=== PATIENT | male | born 1975 | race Caucasian/White ===

== ENCOUNTER → 2020-04-05 14:46 | Outpatient (BNVA) | payer MEDICAID, SELFPAY | PROVIDERS: Visit Provider Urology | DX: E29.1 Testicular hypofunction (principal); F52.4 Premature ejaculation; N52.01 Erectile dysfunction due to arterial insufficiency | CPT/HCPCS: 99214 ==

== ENCOUNTER 2020-08-03 13:02 | Outpatient (REF) | payer MEDICAID, SELFPAY | END 2020-08-03 13:03 | disposition home or self-care (01) | LOC: HO.LAB 13:02 | PROVIDERS: Visit Provider Internal Medicine | DX: Z20.822 Contact with and (suspected) exposure to COVID-19 (principal) | CPT/HCPCS: 36415; C9803; U0003; U0005 ==

== ENCOUNTER → 2020-10-04 08:41 | Outpatient (BNVA) | payer MEDICAID, SELFPAY | PROVIDERS: PCP Internal Medicine; Visit Provider Urology | DX: N52.01 Erectile dysfunction due to arterial insufficiency (principal); E29.1 Testicular hypofunction | CPT/HCPCS: 99212 ==

== ENCOUNTER 2021-03-20 14:13 | Outpatient (REF) | payer MEDICAID, SELFPAY ==
[2021-03-20 16:00] LABS: Hematocrit 51.9 % (42-52); Hemoglobin 16.9 g/dl (14.0-18.0); Mean Corpuscular HGB Conc 32.6 g/dl (31.0-36.0); Mean Corpuscular Hemoglobin 28.1 pg (27.0-33.0); Mean Corpuscular Volume 86.4 fL (80-98); Mean Platelet Volume 10.8 fL (9.4-12.4); Platelet Count 277 X10*3/uL (160-400); Red Blood Count 6.01 X10*6/uL (4.60-5.80); Red Cell Distribution Width 12.6 % (11.0-16.0); White Blood Count 8.9 X10*3/uL (4.8-10.8)
[2021-03-20 16:46] LABS: Prostate Specific Antigen 0.97 ng/mL (<0.05-4.0)
[2021-03-25 08:12] LABS: Testosterone, Total 927 ng/dL (250-1100)
== END 2021-03-20 14:14 | disposition home or self-care (01) ==
LOC: HO.LAB 14:13
PROVIDERS: Visit Provider Urology
DX: Z12.5 Encounter for screening for malignant neoplasm of prostate (principal); E29.1 Testicular hypofunction; N13.8 Other obstructive and reflux uropathy; N40.1 Benign prostatic hyperplasia with lower urinary tract symptoms
CPT/HCPCS: 36415; 84153; 84403; 85027

== ENCOUNTER → 2021-04-05 11:22 | Outpatient (BNVA) | payer MEDICAID, SELFPAY | PROVIDERS: Visit Provider Urology ==

== ENCOUNTER → 2021-09-06 11:08 | Outpatient (BNVA) | payer MEDICAID, SELFPAY | PROVIDERS: PCP General Practice; Referring Provider General Practice; Visit Provider Nurse Practitioner Family | DX: K64.8 Other hemorrhoids (principal); K62.5 Hemorrhage of anus and rectum; K59.01 Slow transit constipation | CPT/HCPCS: 99202 ==

== ENCOUNTER → 2021-09-14 09:32 | Outpatient (BNVA) | payer MEDICAID, SELFPAY | PROVIDERS: PCP General Practice; Referring Provider General Practice; Visit Provider Surgery | DX: K64.8 Other hemorrhoids (principal) | CPT/HCPCS: 46600; 99202 ==

== ENCOUNTER 2021-09-14 16:41 | Emergency (ER) | payer MEDICAID, SELFPAY ==
--- NOTE | ~2021-09-14 | CT_ITS ---
EXAMINATION: CT ABDOMEN AND PELVIS WITHOUT CONTRAST CLINICAL INFORMATION: Flank pain bilateral COMPARISON: None TECHNIQUE: Multidetector volumetric imaging was performed from the superior aspect of the liver through the pubic symphysis. Sagittal and coronal reformatted images were obtained on the technologist's workstation. This CT examination was performed using dose optimization techniques as appropriate, variously including the following: *Automated exposure control *Adjustment of mA and/or kV according to patient size (this includes techniques or standardized protocols for targeted exams where dose is matched to indication/reason for exam; i.e. extremities or head) *Use of iterative reconstruction technique DLP: 930 mGy-cm FINDINGS: LUNG BASES: The visualized lung bases are unremarkable. LIVER, GALLBLADDER, AND BILIARY TREE: The liver is normal in size, shape, and attenuation. No focal hepatic lesion or biliary ductal dilatation is present. The gallbladder is unremarkable with no evidence of radiopaque gallstones, gallbladder wall thickening, or obvious pericholecystic inflammatory changes. PANCREAS: Unremarkable. SPLEEN: Unremarkable. ADRENAL GLANDS: Unremarkable. KIDNEYS AND URETERS: The kidneys are normal in size, shape, and attenuation. No hydronephrosis, hydroureter, or calculi seen. No perinephric stranding. BLADDER: Unremarkable. GASTROINTESTINAL TRACT: The small and large bowel are unremarkable. A normal appendix is not seen but no suspicion around the cecum ABDOMINAL WALL: No significant hernia is appreciated. LYMPH NODES: Normal. VASCULAR: Unremarkable. PELVIC VISCERA: Unremarkable. OSSEOUS STRUCTURES: Unremarkable. CT/CT abdomen pelvis wo con IMPRESSION: No acute finding. The bowel pattern is nonobstructing. There is no free fluid. No evidence of ureteral stone or obstruction. Fleischner guidelines were followed.
[2021-09-14 16:52] VITALS: BP 151/100; PULSE 84; RESP 18; TEMP 37.1; O2SAT 96; BMI 44.1
[2021-09-14 19:00] LABS: MANUAL DIFF FLAG NO
[2021-09-14 19:01] LABS: Basophils Percent Auto 0.3 % (0-2); Eosinophils Absolute Auto 0.1 X10*3/uL (0.0-0.4); Eosinophils Percent Auto 1.6 % (0-4); Hematocrit 50.6 % (42.0-52.0); Hemoglobin 16.8 g/dl (14.0-18.0); Imm Gran Abs Auto 0.05 X10*3/uL (0.00-0.03); Imm Gran Pct Auto 0.6 % (0.0-0.4); Lymphocytes Absolute Auto 1.9 X10*3/uL (1.2-4.9); Lymphocytes Percent Auto 21.8 % (20-40); Mean Corpuscular HGB Conc 33.2 g/dl (31.0-36.0); Mean Corpuscular Hemoglobin 27.8 pg (27.0-33.0); Mean Corpuscular Volume 83.6 fL (80.0-98.0); Monocytes Absolute Auto 0.7 X10*3/uL (0.1-1.2); Monocytes Percent Auto 8.6 % (2-11); Neutrophils Absolute Auto 5.8 x10*3/uL (2.0-8.3); Neutrophils Percent Auto 67.1 % (45-73); Platelet Count 240 X10*3/uL (160-400); Red Blood Count 6.05 X10*6/uL (4.60-5.80); Red Cell Distribution Width 12.7 % (11.0-16.0); White Blood Count 8.6 X10*3/uL (4.8-10.8)
[2021-09-14 19:20] LABS: Anion Gap 12 (12-20); Blood Urea Nitrogen 13 mg/dL (9-16); Calcium 10.1 mg/dL (8.4-10.2); Carbon Dioxide 27 mmol/L (22-29); Chloride 104 mmol/L (96-108); Creatinine Clr Calc Pharmacy 96.1; Estimated Glomerular Filt Rate > 60; Glucose Random 101 mg/dL (60-115); Potassium 4.4 mmol/L (3.3-5.1); Sodium 139 mmol/L (135-145)
--- NOTE | 2021-09-14 20:35 | ED_ITS ---
HPI - General Adult General Chief complaint: General Medical <Chelsea Velez NP - Last Filed: 09/15/21 01:09> Stated complaint: Back pain/Headache <Chelsea Velez NP - Last Filed: 09/15/21 01:09> Time Seen by Provider: 09/14/21 20:51 <Chelsea Velez NP - Last Filed: 09/15/21 01:09> Source: patient <Chelsea Velez NP - Last Filed: 09/15/21 01:09> Mode of arrival: ambulatory <Chelsea Velez NP - Last Filed: 09/15/21 01:09> Limitations: no limitations <Chelsea Velez NP - Last Filed: 09/15/21 01:09> History of Present Illness HPI narrative: 45-year-old male presents with multiple complaints. Reports several days of bilateral lower back pain radiating down to his groin and his leg. Also reports headache, changes in vision and left ear pain with hearing loss. <Chelsea Velez NP - Last Filed: 09/15/21 01:09> Onset (ago): week(s) <Chelsea Velez NP - Last Filed: 09/15/21 01:09> Location: head and back <Chelsea Velez NP - Last Filed: 09/15/21 01:09> Radiation: non-radiation <Chelsea Velez NP - Last Filed: 09/15/21 01:09> Severity: moderate <Chelsea Velez NP - Last Filed: 09/15/21 01:09> Quality: aching <Chelsea Velez NP - Last Filed: 09/15/21 01:09> Pain Consistency: intermittent <Chelsea Velez NP - Last Filed: 09/15/21 01:09> Relieving factors: rest <Chelsea Velez NP - Last Filed: 09/15/21 01:09> Exacerbating factors: movement <Chelsea Velez NP - Last Filed: 09/15/21 01:09> Associated symptoms: headaches <Chelsea Velez NP - Last Filed: 09/15/21 01:09> Treatments prior to arrival: none <Chelsea Velez NP - Last Filed: 09/15/21 01:09> Related Data Home medications: Home Medications Medication Instructions Recorded Confirmed cyclobenzaprine 5 mg tablet 5 mg PO BEDTIME 04/05/20 09/14/21 naproxen 250 mg tablet 250 mg PO BID PRN 04/05/20 09/14/21 Previous Rx's Medication Instructions Recorded tadalafil 5 mg tablet 5 mg PO DAILY 90 Days #90 tab 10/04/20 syringe with needle 1 mL 25 gauge #50 ea 04/20/21 x 5/8 testosterone cypionate 200 mg/mL 80 mg (0.4 mL) SUBCUT QWEEK 28 05/24/21 intramuscular oil Days #2 ml (Depo-Testosterone) docusate sodium 100 mg capsule 100 mg PO BEDTIME #30 cap 09/06/21 hydrocortisone 2.5 % topical cream 1 appl NV BID-QID PRN #30 g 09/06/21 with perineal applicator (Proctosol HC) sennosides 8.6 mg tablet (Natural 8.6 mg PO BEDTIME #30 tab 09/06/21 Senna Laxative) <BRUNO Macias Last Filed: 09/15/21 01:09> Allergies/adverse reactions: Allergies Allergy/AdvReac Type Severity Reaction Status Date / Time No Known Allergies Allergy Verified 09/14/21 10:51 [No Known Allergies*] <BRUNO Macias Last Filed: 09/15/21 01:09> Review of Systems Review of Systems: Constitutional: No Fever, No Chills ENT/Mouth: Positive left Ear Pain, No Hoarseness, No sore throat Eyes: No Eye Pain, No Swelling, No Redness, No Foreign Body Cardiovascular: No Chest Pain, No SOB Respiratory: No Cough, No Dyspnea Gastrointestinal: No Nausea, No Vomiting, No Diarrhea, No abdominal Pain, positive flank pain Genitourinary: No Dysuria, No Hematuria Musculoskeletal: No joint pain, No Myalgias, No Joint Swelling Skin: No Skin lacerations, No rash Neuro: No Weakness, No Numbness, No Paresthesias, No Loss of Consciousness, No Dizziness, positive Headache Psych: No Anxiety/Panic, No Depression Heme/Lymph: no easy bruising, no Lymphadenopathy Endocrine: No Polyuria, No Polydipsia <BRUNO Macias Last Filed: 09/15/21 01:09> Yes all other systems are reviewed and are negative <Chelsea Velez NP - Last Filed: 09/15/21 01:09> [facility] Past Medical History Attestation statement: The following information was validated with the patient. <Chelsea Velez NP - Last Filed: 09/15/21 01:09> Source: old records reviewed <Chelsea Velez NP - Last Filed: 09/15/21 01:09> Medical History: Medical History Hemorrhoids with complication Hypogonadism in male Low libido Morbid obesity Premature ejaculation <Chelsea Velez NP - Last Filed: 09/15/21 01:09> Surgical History: Surgical History History of vasectomy <Chelsea Velez NP - Last Filed: 09/15/21 01:09> Social History Social History: Social History Alcohol intake: never Patient Tobacco Use Status: Never used Tobacco Use of substances other than those prescribed or required for medical reasons: No Advance Directives: No <Chelsea Velez NP - Last Filed: 09/15/21 01:09> Physical Exam ED Vital Signs: Vital Signs - 24 hr 09/14/21 16:52 09/14/21 20:51 Temperature 98.8 F 98.8 F Pulse Rate 84 84 Respiratory Rate 18 14 Blood Pressure 151/100 H 145/96 H Pulse Oximetry 96 98 BMI result Body Mass Index 44.1 <Chelsea Velez NP - Last Filed: 09/15/21 01:09> Appearance: Alert. Oriented X3. No acute distress. Head: Normal external exam. Normocephalic. Atraumatic. No Adkins signs noted. No raccoon eyes noted Eyes: PERRLA. EOMI. Conjunctiva and sclera normal. Eyelids normal. ENT: TM's Normal. Pharynx normal. Uvula midline. Moist mucous membranes. No trismus noted. No drooling noted. No muffled voice noted. Neck: Normal inspection. Neck supple. No adenopathy. No meningeal signs. No neck mass noted. CVS: Normal heart rate and rhythm. Heart sound normal. No murmurs noted. Pulses equal to all extremities. Respiratory: No respiratory distress. Painless inspiration. Breath sounds normal. No wheezes/rales/rhonchi noted. Chest nontender. No accessory muscle usage noted or decreased air movement noted. Abdomen: Soft and nontender. Bowel sounds normal in all 4 quadrants. No dist ention noted. Right-sided CVA tenderness noted. Back: Full range of motion noted. Skin: Skin warm and dry. Normal skin color. Normal skin turgor. No rashes/lesions/lacerations noted. Extremities: No lower extremity edema. Extremities exhibit normal range of motion. Extremities nontender. Neuro: cranial nerves 2-12 intact, no focal neural deficits, strength 5/5 to all extremities, No motor deficit. No sensory deficit. <BRUNO Macias Last Filed: 09/15/21 01:09> Course Course Course Narrative: 45-year-old male presents with headache, left ear pain and decreased hearing, lower back pain and sciatica for approximately 2 months. He was worked up by his primary care physician who treated him for sinus infection. He does have ch ronic lower back pain however states the pain is radiated up into his flank. Will order labs, CT scan of abdomen pelvis. HEENT exam is negative. Labs negative for acute findings. CT scan of abdomen pelvis is negative. Pain is most likely muscular skeletal. Will refer patient to ENT for his reported hearing loss. pipe coverer utilized for all correspondence. Google translate utilized for discharge instructions. Patient verbalized understanding of and agrees to plan of care to discharge home. Verbalized understanding of signs and symptoms indicating need for emergent intervention <BRUNO Macias Last Filed: 09/15/21 01:09> Medical Decision Making Differential Diagnosis Differential Diagnosis: Chronic back pain, nephrolithiasis, pyelo, UTI, otitis media, sinusitis <BRUNO Macias Last Filed: 09/15/21 01:09> Medical Records Medical records reviewed: Yes I reviewed the patient's medical records. <BRUNO Macias Last F iled: 09/15/21 01:09> Lab Data Lab results reviewed: Yes I reviewed the patient's lab results. <Chelsea Velez NP - Last Filed: 09/15/21 01:09> Result diagrams: : 09/14/21 18:56 09/14/21 18:56 <Chelsea Velez NP - Last Filed: 09/15/21 01:09> Labs: Lab Results 09/14/21 09/14/21 09/14/21 Range/Units 18:56 18:56 21:16 WBC 8.6 (4.8-10.8) X10*3/uL RBC 6.05 H (4.60-5.80) X10*6/uL Hgb 16.8 (14.0-18.0) g/dl Hct 50.6 (42.0-52.0) % MCV 83.6 (80.0-98.0) fL MCH 27.8 (27.0-33.0) pg MCHC 33.2 (31.0-36.0) g/dl RDW 12.7 (11.0-16.0) % Plt Count 240 (160-400) X10*3/uL MPV 10.0 (9.4-12.4) fL Immature Gran % (Auto) 0.6 H (0.0-0.4) % Neut % (Auto) 67.1 (45-73) % Lymph % (Auto) 21.8 (20-40) % Bucks % (Auto) 8.6 (2-11) % Eos % (Auto) 1.6 (0-4) % Baso % (Auto) 0.3 (0-2) % Lymph # (Auto) 1.9 (1.2-4.9) X10*3/uL Bucks # (Auto) 0.7 (0.1-1.2) X10*3/uL Eos # (Auto) 0.1 (0.0-0.4) X10*3/uL Baso # (Auto) 0.0 (0.0-0.2) X10*3/uL Abs Immat Gran (auto) 0.05 H (0.00-0.03) X10*3/uL Absolute Neuts (auto) 5.8 (2.0-8.3) x10*3/uL Absolute Nucleated RBC 0.000 (0.0-0.012) X10*3/uL Nucleated RBC % (auto) 0.0 (0.0-0.2) /100WBC Sodium 139 (135-145) mmol/L Potassium 4.4 (3.3-5.1) mmol/L Chloride 104 (96-108) mmol/L Carbon Dioxide 27 (22-29) mmol/L Anion Gap 12 (12-20) BUN 13 (9-16) mg/dL Creatinine 1.26 (0.5-1.4) mg/dL Estim Creat Clear Calc 96.1 Estimated GFR > 60 Random Glucose 101 (60-115) mg/dL Calcium 10.1 (8.4-10.2) mg/dL Troponin I High Sens 7.0 (<3.5-35.0) ng/L Urine Color Urine Appearance Urine pH (5.0-8.0) Ur Specific Hollenberg (1.005-1.025) Urine Protein (NEG-TRACE) MG/DL Urine Glucose (UA) (NEG) MG/DL Urine Ketones (NEG) MG/DL Urine Blood (NEG) Urine Nitrite (NEG) Ur Leukocyte Esterase (NEG) Influenza Type A (PCR) (Negative) Influenza Type B (PCR) (Negative) RSV RNA Qual (PCR) (Negative) SARS-CoV-2 RNA (RT-PCR) (Negative) 09/14/21 09/14/21 Range/Units 21:16 21:16 WBC (4.8-10.8) X10*3/uL RBC (4.60-5.80) X10*6/uL Hgb (14.0-18.0) g/dl Hct (42.0-52.0) % MCV (80.0-98.0) fL MCH (27.0-33.0) pg MCHC (31.0-36.0) g/dl RDW (11.0-16.0) % Plt Count (160-400) X10*3/uL MPV (9.4-12.4) fL Immature Gran % (Auto) (0.0-0.4) % Neut % (Auto) (45-73) % Lymph % (Auto) (20-40) % Bucks % (Auto) (2-11) % Eos % (Auto) (0-4) % Baso % (Auto) (0-2) % Lymph # (Auto) (1.2-4.9) X10*3/uL Bucks # (Auto) (0.1-1.2) X10*3/uL Eos # (Auto) (0.0-0.4) X10*3/uL Baso # (Auto) (0.0-0.2) X10*3/uL Abs Immat Gran (auto) (0.00-0.03) X10*3/uL Absolute Neuts (auto) (2.0-8.3) x10*3/uL Absolute Nucleated RBC (0.0-0.012) X10*3/uL Nucleated RBC % (auto) (0.0-0.2) /100WBC Sodium (135-145) mmol/L Potassium (3.3-5.1) mmol/L Chloride (96-108) mmol/L Carbon Dioxide (22-29) mmol/L Anion Gap (12-20) BUN (9-16) mg/dL Creatinine (0.5-1.4) mg/dL Estim Creat Clear Calc Estimated GFR Random Glucose (60-115) mg/dL Calcium (8.4-10.2) mg/dL Troponin I High Sens (<3.5-35.0) ng/L Urine Color YELLOW Urine Appearance CLEAR Urine pH 5.5 (5.0-8.0) Ur Specific Hollenberg 1.020 (1.005-1.025) Urine Protein NEG (NEG-TRACE) MG/DL Urine Glucose (UA) NEG (NEG) MG/DL Urine Ketones NEG (NEG) MG/DL Urine Blood NEG (NEG) Urine Nitrite NEG (NEG) Ur Leukocyte Esterase NEG (NEG) Influenza Type A (PCR) NEGATIVE (Negative) Influenza Type B (PCR) NEGATIVE (Negative) RSV RNA Qual (PCR) NEGATIVE (Negative) SARS-CoV-2 RNA (RT-PCR) NEGATIVE (Negative) <Chelsea Velez NP - Last Filed: 09/15/21 01:09> Imaging Data CT abdomen pelvis: Attestation: I personally reviewed and interpreted this imaging study as follows: <Chelsea Velez NP - Last Filed: 09/15/21 01:09> Radiologist's impression: FINDINGS: LUNG BASES: The visualized lung bases are unremarkable.? LIVER, GALLBLADDER, AND BILIARY TREE: The liver is normal in size, shape, and attenuation. No focal hepatic lesion or biliary ductal dilatation is present. The gallbladder is unremarkable with no evidence of radiopaque gallstones, gallbladder wall thickening, or obvious pericholecystic inflammatory changes.? PANCREAS: Unremarkable.? SPLEEN: Unremarkable.? ADRENAL GLANDS: Unremarkable.? KIDNEYS AND URETERS: The kidneys are normal in size, shape, and attenuation. No hydronephrosis, hydroureter, or calculi seen. No perinephric stranding. ? BLADDER: Unremarkable.? GASTROINTESTINAL TRACT: The small and large bowel are unremarkable. A normal appendix is not seen but no suspicion around the cecum? ABDOMINAL WALL: No significant hernia is appreciated.? LYMPH NODES: Normal. VASCULAR: Unremarkable. PELVIC VISCERA: Unremarkable.? OSSEOUS STRUCTURES: Unremarkable.? CT/CT abdomen pelvis wo con IMPRESSION: No acute finding. The bowel pattern is nonobstructing. There is no free fluid. No evidence of ureteral stone or obstruction.? ? Fleischner guidelines were followed. <Chelsea Velez NP - Last Filed: 09/15/21 01:09> Discharge Plan Discharge Clinical Impression: Hearing loss, Abdominal pain, Chronic lower back pain <Chelsea Velez NP - Last Filed: 09/15/21 01:09> Patient Disposition: Home, Self-Care <Chelsea Velez NP - Last Filed: 09/15/21 01:09> Additional Instructions: Se le evalu? por p?rdida de audici?n y dolor de o?do cr?zain timi el ?ltimo mes. Por favor, ellie un seguimiento con magallanes m?dico de atenci?n primaria. Te remit? a ENT. Por favor llame y solicite becka pradip. Se le evalu? por dolor en la parte baja de la espalda y en el flanco. La tomograf?a computarizada del abdomen y la pelvis es negativa para hallazgos agudos que requieren becka intervenci?n urgente. Lo remit? al Dr. Carvajal para el manejo del dolor por dolor lumbar cr?zain. Por favor llame y solicite becka pradip. Salome por elegir zandra departamento de emergencias para magallanes evaluaci?n. Por favor, ellie un seguimiento con el m?dico de atenci?n primaria seg?n sea necesario. Regrese al departamento de emergencias por cualquier s?ntoma nuevo, preocupante o que empeore. You were evaluated for hearing loss and ear pain which has been chronic over the past month. Please follow-up with your primary care physician. I referred you to ENT. Please call and request an appointment. You were evaluated for lower back and flank pain. CT scan of abdomen pelvis is negative for acute findings requiring emergent intervention. I referred you to Dr. Carvajal for pain management for chronic lower back pain. Please call and request an appointment. Thank you for choosing this emergency department for evaluation. Please follow-up with primary care physician as needed. Return to the emergency department for any new, concerning, or worsening symptoms. <Chelsea Velez NP - Last Filed: 09/15/21 01:09> Prescriptions: No Action (DME) syringe with needle 1 mL 25 gauge x 5/8 syringe See Rx Instructions .ROUTE .MEDSUPPLY Qty: 50 1RF Rx Instructions: As directed testosterone cypionate [Depo-Testosterone] 200 mg/mL oil 80 mg subcut QWEEK 28 Days Qty: 2 5RF naproxen 250 mg tablet 250 mg PO BID PRN0RF cyclobenzaprine 5 mg tablet 5 mg PO BEDTIME 0RF tadalafil 5 mg tablet 5 mg PO DAILY 90 Days Qty: 90 1RF docusate sodium 100 mg capsule 100 mg PO BEDTIME Qty: 30 3RF sennosides [Natural Senna Laxative] 8.6 mg tablet 8.6 mg PO BEDTIME Qty: 30 3RF hydrocortisone [Proctosol HC] 2.5 % cream with perineal applicator 1 appl NV BID-QID PRN (Reason: hemorrhoids) Qty: 30 2RF <Chelsea Velez NP - Last Filed: 09/15/21 01:09> Referrals: Steve Carvajal MD [Physician] - 2 days (Chronic back pain) Tapan Clinton [Physician] - 2 days (Left ear hearing loss) <Chelsea Velez NP - Last Filed: 09/15/21 01:09> Interventions: ED Discharge Assessment Last Done: 09/14/21 23:54 <Chelsea Velez NP - Last Filed: 09/15/21 01:09> Discharge Date/Time: 09/14/21 23:55 <Chelsea Velez NP - Last Filed: 09/15/21 01:09>
[2021-09-14 20:51] VITALS: BP 145/96; PULSE 84; RESP 14; TEMP 37.1; O2SAT 98
--- NOTE | 2021-09-14 20:51 | ECG_ITS ---
Test Reason : back pain Blood Pressure : / mmHG Vent. Rate : 085 BPM Atrial Rate : 085 BPM P-R Int : 122 ms QRS Dur : 086 ms QT Int : 356 ms P-R-T Axes : 032 -14 027 degrees QTc Int : 423 ms Normal sinus rhythm Minimal voltage criteria for LVH, may be normal variant ( R in aVL ) Borderline ECG No previous ECGs available Referred By: Chelsea Velez Electronically Signed By:JIGNA HIGGINS MD
[2021-09-14 21:25] LABS: Appearance Urine CLEAR; Color Urine YELLOW; Glucose Urine UA NEG (NEG); Leukocyte Esterase Urine NEG (NEG); Nitrite Urine NEG (NEG); PH 5.5 (5.0-8.0); Urine Blood NEG (NEG); Urine Ketones NEG (NEG); Urine Protein NEG (NEG-TRACE)
[2021-09-14 22:01] LABS: Influenza A PCR NEGATIVE (Negative); Influenza B PCR NEGATIVE (Negative); Resp Syncy Virus RNA Qual PCR NEGATIVE (Negative); SARS COV2 PCR INHOUSE NEGATIVE (Negative)
== END 2021-09-14 23:55 | disposition home or self-care (01) ==
PROVIDERS: Nurse Practitioner Family; Emergency Provider Emergency Medicine; PCP General Practice
DX: G89.29 Other chronic pain (principal); M54.50 Low back pain, unspecified; R10.9 Unspecified abdominal pain; H92.02 Otalgia, left ear; H91.92 Unspecified hearing loss, left ear; Z20.822 Contact with and (suspected) exposure to COVID-19
CPT/HCPCS: 0241U; 36415; 74176; 80048; 81003; 84484; 85025; 93005; 99284

== ENCOUNTER 2021-09-20 12:36 | Outpatient (REF) | payer MEDICAID, SELFPAY ==
[2021-09-20 13:26] LABS: Hematocrit 49.2 % (42.0-52.0); Hemoglobin 16.4 g/dl (14.0-18.0); Mean Corpuscular HGB Conc 33.3 g/dl (31.0-36.0); Mean Corpuscular Hemoglobin 27.7 pg (27.0-33.0); Mean Corpuscular Volume 83.1 fL (80.0-98.0); Mean Platelet Volume 10.5 fL (9.4-12.4); Platelet Count 246 X10*3/uL (160-400); Red Blood Count 5.92 X10*6/uL (4.60-5.80); White Blood Count 7.6 X10*3/uL (4.8-10.8)
[2021-09-20 14:06] LABS: Prostate Specific Antigen 0.72 ng/mL (<0.05-4.0)
[2021-09-26 08:56] LABS: Testosterone, Total 182 ng/dL (250-1100)
== END 2021-09-20 12:37 | disposition home or self-care (01) ==
LOC: HO.LAB 12:36
PROVIDERS: PCP General Practice; Visit Provider Urology
DX: Z12.5 Encounter for screening for malignant neoplasm of prostate (principal); E29.1 Testicular hypofunction
CPT/HCPCS: 36415; 84153; 84403; 85027

== ENCOUNTER 2021-09-27 12:34 | Outpatient (REF) | payer MEDICAID, SELFPAY ==
--- NOTE | 2021-09-27 14:25 | MHC.AU.ANO ---
Adult Audiological Evaluation Date of Visit: 09/27/21 County Manager Used: [place]- In Person Reason for Appointment: Patient reports that for about one month, he has been having significant difficulty hearing out of his left ear. If he plugs up his right ear, his left can hear that someone is talking, but he can't make out what they are saying and they sound far away. Has hearing been tested previously?: No Ear History: Ear Deformity: None Reported Recent Ear Drainage: None Reported Recent Ear Pain: None Reported Family History of Hearing Loss?: No Recent Ear Infections: None Reported Ear Infections in Childhood: None Reported History of Ear Wax Buildup: None Reported Previous Ear Surgery: None Reported Bothersome Tinnitus/Ringing/Noises in Ears: None Reported Ear used on the phone: None Reported Blocked/Full Sensation in Ear(s): Left Ear History of occupational noise exposure?: No History: No Medical History: Medical History: Seasonal allergies Medication List: Flexeril, Relafen, Claritin, Testosterone, Vitamin D3 Otoscopy: Right Ear: Tympanic membrane is retracted Left Ear: Fluid behind tympanic membrane Tympanometry: Tympanometry performed due to: To assess integrity of the middle ear system Right Ear: Negative Middle Ear Pressure (Type C) Left Ear: Non-compliant Middle Ear System (Type B) Hearing Evaluation: Transducer(s) Used: Insert Earphones Method: Conventional Audiometry Stimuli Used: Pure Tones Right Ear: Description of Hearing: Mild to moderately-severe mixed hearing loss Left Ear: Description of Hearing: Moderate to profound mixed hearing loss (mostly conductive) Speech Recognition Threshold (SRT): Method Used: Recorded Lists Stimuli Used: [place] Trisyllable Words Right Ear: 35 dBHL Left Ear: 55 dBHL Word Discrimination: Method: Recorded Lists Word Lists Used: Lista Bisil?bica ([place]) Right Ear: 100% at 70 dBHL Left Ear: 100% at 85 dBHL Interpretation of Results: Patient presents with middle ear dysfunction and mixed hearing loss bilaterally, significantly worse in the left ear. Recommendations: Referral to Ear, Nose, and Throat is highly recommended to address middle ear dysfunction and mixed hearing loss Diagnosis: Primary Diagnosis: H90.A32 Mixed HL, Unilateral, Left Ear, W/Restricted Contralateral Signature: Provider: Mariano Anguiano, [facility]
== END 2021-09-27 12:35 | disposition home or self-care (01) ==
LOC: HO.SH 12:34
PROVIDERS: Visit Provider General Practice
DX: H90.A32 Mixed conductive and sensorineural hearing loss, unilateral, left ear with restricted hearing on the contralateral side (principal)
CPT/HCPCS: 92557; 92567

== ENCOUNTER → 2021-10-04 10:33 | Outpatient (BNVA) | payer MEDICAID, SELFPAY | PROVIDERS: PCP General Practice; Visit Provider Urology | DX: E29.1 Testicular hypofunction (principal); N52.01 Erectile dysfunction due to arterial insufficiency; Z79.899 Other long term (current) drug therapy | CPT/HCPCS: 99212 ==

== ENCOUNTER → 2021-11-03 12:34 | Outpatient (BNVA) | payer MEDICAID, SELFPAY | PROVIDERS: PCP General Practice; Referring Provider General Practice; Visit Provider Nurse Practitioner Family | DX: K64.9 Unspecified hemorrhoids (principal); K59.01 Slow transit constipation | CPT/HCPCS: 99212 ==

== ENCOUNTER 2022-01-06 10:23 | Emergency (ER) | payer MEDICAID, SELFPAY ==
--- NOTE | ~2022-01-06 | XR_ITS ---
EXAMINATION: XR CHEST CLINICAL INFORMATION: Right-sided pain COMPARISON: None TECHNIQUE: 2 views of the chest were obtained. FINDINGS: The cardiac and mediastinal contours are normal. The lungs are clear. There is no pleural effusion or pneumothorax. There are degenerative changes of the spine. XR/XR chest 2V IMPRESSION: No evidence of acute disease in the chest.
[2022-01-06 10:48] VITALS: BP 158/98; PULSE 78; RESP 16; TEMP 36.3; O2SAT 96; BMI 42.3
--- NOTE | 2022-01-06 12:53 | ED.BACK ---
HPI - Back Pain/Injury General Chief Complaint: Back Pain/Injury Stated Complaint: back pain Time Seen by Provider: 01/06/22 12:51 Source: patient Mode of arrival: ambulatory History of Present Illness HPI Narrative: 46-year-old male with a past medical history of obesity, presenting to the ED complaining right-sided back pain x3 weeks. Reports pain is constant, worse at night and 1st thing in the morning. Reports pain worse with movement. Denies known injury, trauma or fall, radiation down the lower extremities, numbness, tingling, weakness, SOB, CP, pain with inspiration, hematuria / dysuria MD elicited complaint: back pain Onset (ago): day(s) Related Data Home Medications Medication Instructions Recorded Confirmed naproxen 250 mg tablet 250 mg PO BID PRN 04/05/20 09/14/21 azelastine 137 mcg (0.1 %) nasal 1 spray intranasal BID 10/04/21 spray aerosol cholecalciferol (vitamin D3) 50 50 mcg PO DAILY 10/04/21 mcg (2,000 unit) tablet loratadine 10 mg tablet 10 mg PO DAILY 10/04/21 nabumetone 750 mg tablet 750 mg PO BID low back pain 10/04/21 polyvinyl alcohol 1.4 % eye drops 1 drp ophthalmic (eye) TID-QID 10/04/21 (Artificial Tears (polyvinyl alcohol)) cyclobenzaprine 10 mg tablet 10 mg PO TID PRN low back pain 11/03/21 Previous Rx's Medication Instructions Recorded hydrocortisone 2.5 % topical cream 1 appl TN BID-QID PRN hemorrhoids 09/06/21 with perineal applicator #30 grams (Proctosol HC) testosterone cypionate 200 mg/mL 100 mg (0.5 mL) subcut QWEEK 4 10/04/21 intramuscular oil weeks #2 mL (Depo-Testosterone) docusate sodium 100 mg capsule 100 mg PO BEDTIME #90 caps 11/03/21 sennosides 8.6 mg tablet (Natural 8.6 mg PO BEDTIME constipation #90 11/03/21 Senna Laxative) tabs acetaminophen 500 mg tablet 500 mg PO Q6H PRN fever or pain 01/06/22 (Tylenol Extra Strength) #14 tabs cyclobenzaprine 5 mg tablet 5 mg PO Q8H PRN pain (scale score 01/06/22 7-10) 5 days #14 tabs ketorolac 10 mg tablet 10 mg PO TID PRN pain 5 days #15 01/06/22 tabs lidocaine 5 % topical patch 1 patch topical DAILY PRN pain #30 01/06/22 (Lidoderm) ea Allergies Allergy/AdvReac Type Severity Reaction Status Date / Time No Known Allergies Allergy Verified 01/06/22 10:48 [No Known Allergies*] Review of Systems Review of Systems: Constitutional: No Fever, No Chills, No Fatigue, No Malaise ENT/Mouth: No Ear Pain, No Nasal Congestion, No sore throat, No Rhinorrhea, No Swallowing Difficulty Eyes: No Eye Pain, No Swelling, No Redness Cardiovascular: No Chest Pain, No SOB, No Palpitations Respiratory: No Cough, No Sputum, No Dyspnea Gastrointestinal: No Nausea, No Vomiting, No Diarrhea, No Constipation, No Abdominal pain Genitourinary: No Dysuria, No Urinary Frequency, No Hematuria, No Urinary Incontinence/retention, No Urgency, No Flank Pain Musculoskeletal: + joint pain, No Myalgias, No Joint Swelling Skin: No Skin Lesions, No rash Neuro: No Weakness, No Numbness, No Paresthesias, No Headache Yes all other systems are reviewed and are negative Neurologic: Denies Sensory deficit (Neuro) [facility] Past Medical History Attestation statement: The following information was validated with the patient. Medical History Hemorrhoids with complication Hypogonadism in male Low libido Morbid obesity Premature ejaculation Surgical History History of vasectomy Social History Social History Alcohol intake: never Patient Tobacco Use Status: Never used Tobacco Advance Directives: Yes Advance Directives Information Provided: Yes Advance Directives on File: No Physical Exam Vital Signs: Vital Signs: Last Vital Signs Temp 97.3 F 01/06/22 10:48 Pulse 78 01/06/22 10:48 Resp 16 01/06/22 10:48 BP 158/98 H 01/06/22 10:48 Pulse Ox 96 01/06/22 10:48 O2 Del Method 01/06/22 10:48 BMI result Body Mass Index 42.3 Const: General: cooperative, healthy appearing and no acute distress Orientation/consciousness: patient oriented x3 Limitations: no limitations HEENT: Head: Yes normal to inspection and Yes atraumatic Ears: hearing grossly normal bilaterally General nose exam: Normal external nose present Face and sinus: Yes normal facial exam Eyes: General: appearance normal, both eyes and all related structures EOM: EOMs intact bilaterally Neck: Neck: Yes normal visual inspection and Yes no meningeal signs Chest: Chest palpation & inspection: normal inspection of the chest and no crepitus Resp: Effort & Inspection: normal respiratory effort and no respiratory distress Auscultation: clear to auscultation bilaterally Cardio: Rate: regular rate Heart sounds: S1 normal heart sound present and S2 normal heart sound present GI: Inspection: Yes normal to inspection Palpation (GI): Soft to palpation, nontender, no guarding and not rigid : General: Yes no CVA tenderness Back/Spine/Pelvis: Other: No midline thoracic/lumbar spinous tenderness/step-off or deformity. + right-sided midthoracic paraspinal tenderness to palpation/right scapular tenderness. No rash Back: no CVA tenderness Skin: Rashes: no rashes Wounds: no wounds Neuro: Other: Strength intact throughout. No saddle anesthesia. Sensation intact to light touch. Neurovascular intact distally General: patient oriented x3, gait normal, tone normal, moves all extremities, no meningeal signs and no focal motor deficits Gait exam (Neuro): Normal gait present Motor exam (neuro): 5/5 motor strength present throughout Sensory Exam: No Sensory deficit (Neuro) Extrem: General: Yes normal to inspection Course Course Course Narrative: XR chest 2V IMPRESSION: No evidence of acute disease in the chest. -UA negative > results discussed with patient with science interpreter including worrisome signs and symptoms and strict return precautions and recommended follow-up with PCP MDM - Back Pain/Injury MDM Narrative Medical decision making narrative: 46-year-old male with a past medical history of obesity, presenting to the ED complaining right-sided back pain x3 weeks. Reports pain is constant, worse at night and 1st thing in the morning. On exam vital signs stable, NAD, nontoxic appearing, physical exam as above, no midline spinous tenderness throughout, no red flag symptoms, physical exam as above. Concern for MSK pain/strain vs underlying pneumonia or ?Mass vs renal stone. Symptoms atypical for ACS/PE Plan: CXR, UA Differential Diagnosis Differential diagnosis: Likely renal colic and thoracic back pain Medical Records Attestation: I reviewed the patient's medical records. Lab Data Attestation: I reviewed the patient's lab results. Labs: Lab Results 01/06/22 Range/Units 15:09 Urine Color YELLOW Urine Appearance CLEAR Urine pH 5.5 (5.0-8.0) Ur Specific [place] 1.015 (1.005-1.025) Urine Protein NEG (NEG-TRACE) MG/DL Urine Glucose (UA) NEG (NEG) MG/DL Urine Ketones NEG (NEG) MG/DL Urine Blood NEG (NEG) Urine Nitrite NEG (NEG) Ur Leukocyte Esterase NEG (NEG) Discharge Plan Discharge Clinical Impression: Thoracic back pain Patient Disposition: Home, Self-Care Instructions: Thoracic Pain (ED) Additional Instructions: Your pain is likely musculoskeletal Flexeril is a muscle relaxer, take at night as it makes you drowsy, do not drive, drink alcohol, or operate machinery while taking it Toradol is an anti-inflammatory / pain medication, take with food Lidoderm patches are numbing patches, apply to painful area In addition take Tylenol at home If symptoms persist or worsen, pain becomes unbearable, you developed urinary retention or incontinence, or weakness return to the ED Es probable que magallanes dolor sea musculoesquel?kenneth Flexeril es un relajante muscular, t?maine por la noche ya que te adormece, no conduzcas, bebas alcohol ni operes maquinaria mientras lo dominique. Toradol es un medicamento antiinflamatorio/analg?sico, se pascale con alimentos. Los parches de Lidoderm son parches anest?sicos, se aplican en el ?jeff dolorida Adem?s pascale Tylenol en casa Si los s?ntomas persisten o empeoran, el dolor se vuelve insoportable, desarroll? retenci?n urinaria o incontinencia, o debilidad, regrese al servicio de urgencias. Prescriptions: New acetaminophen [Tylenol Extra Strength] 500 mg tablet 500 mg PO Q6H PRN (Reason: fever or pain) Qty: 14 0RF ketorolac 10 mg tablet 10 mg PO TID PRN (Reason: pain) 5 Days Qty: 15 0RF lidocaine [Lidoderm] 5 % adhesive patch,medicated 1 patch topical DAILY MDD remove after 12 hours PRN (Reason: pain) Qty: 30 0RF Rx Instructions: leave on most painful area for up to 12 hrs cyclobenzaprine 5 mg tablet 5 mg PO Q8H PRN (Reason: pain (scale score 7-10)) 5 Days Qty: 14 0RF No Action testosterone cypionate [Depo-Testosterone] 200 mg/mL oil 100 mg subcut QWEEK 28 Days Qty: 2 5RF naproxen 250 mg tablet 250 mg PO BID PRN cholecalciferol (vitamin D3) 50 mcg (2,000 unit) tablet 50 mcg PO DAILY azelastine 137 mcg (0.1 %) aerosol,spray 1 spray intranasal BID polyvinyl alcohol [Artificial Tears (polyvin alc)] 1.4 % drops 1 drp ophthalmic (eye) TID-QID nabumetone 750 mg tablet 750 mg PO BID loratadine 10 mg tablet 10 mg PO DAILY cyclobenzaprine 10 mg tablet 10 mg PO TID PRN (Reason: low back pain) docusate sodium 100 mg capsule 100 mg PO BEDTIME Qty: 90 4RF sennosides [Natural Senna Laxative] 8.6 mg tablet 8.6 mg PO BEDTIME Qty: 90 4RF hydrocortisone [Proctosol HC] 2.5 % cream with perineal applicator 1 appl TN BID-QID PRN (Reason: hemorrhoids) Qty: 30 2RF Referrals: [facility] [Primary Care Provider] - Print Language: Bulgarian
[2022-01-06] MEDS: Ketorolac Tromethamine 30 MG/ML VIAL IM (15:02)
[2022-01-06] MEDS: Lidocaine 4 % Patch ADH..PATCH 1 PATCH TRANSDERMA (15:03)
[2022-01-06 15:21] LABS: Appearance Urine CLEAR; Color Urine YELLOW; Glucose Urine UA NEG (NEG); Leukocyte Esterase Urine NEG (NEG); Nitrite Urine NEG (NEG); PH 5.5 (5.0-8.0); Specific Gravity - Urine 1.015 (1.005-1.025); Urine Blood NEG (NEG); Urine Ketones NEG (NEG); Urine Protein NEG (NEG-TRACE)
== END 2022-01-06 15:51 | disposition home or self-care (01) ==
PROVIDERS: Physician Assistant; Emergency Provider Emergency Medicine
DX: M54.6 Pain in thoracic spine (principal); E66.01 Morbid (severe) obesity due to excess calories; Z68.41 Body mass index [BMI] 40.0-44.9, adult
CPT/HCPCS: 71046; 81003; 96372; 99283; 99284; J1885

== ENCOUNTER 2022-04-17 11:36 | Outpatient (REF) | payer MEDICAID, SELFPAY ==
[2022-04-17 12:47] LABS: Hematocrit 43.7 % (42.0-52.0)
[2022-04-21 11:52] LABS: Testosterone, Total 339 ng/dL (250-1100)
== END 2022-04-17 11:37 | disposition home or self-care (01) ==
LOC: HO.LAB 11:36
PROVIDERS: Visit Provider Urology
DX: Z12.5 Encounter for screening for malignant neoplasm of prostate (principal); E29.1 Testicular hypofunction
CPT/HCPCS: 36415; 84153; 84403; 85014

== ENCOUNTER 2022-10-17 09:40 | Outpatient (REF) | payer MEDICAID, SELFPAY ==
[2022-10-17 10:08] LABS: Hematocrit 50.1 % (42.0-52.0); Hemoglobin 16.4 g/dl (14.0-18.0); Mean Corpuscular HGB Conc 32.7 g/dl (31.0-36.0); Mean Corpuscular Hemoglobin 28.1 pg (27.0-33.0); Mean Corpuscular Volume 85.9 fL (80.0-98.0); Mean Platelet Volume 10.1 fL (9.4-12.4); Platelet Count 207 X10*3/uL (160-400); Red Blood Count 5.83 X10*6/uL (4.60-5.80); Red Cell Distribution Width 13.9 % (11.0-16.0); White Blood Count 7.5 X10*3/uL (4.8-10.8)
[2022-10-17 11:18] LABS: Prostate Specific Antigen 2.22 ng/mL (<0.05-4.0)
[2022-10-24 12:34] LABS: Testosterone, Total 885 ng/dL (250-1100)
== END 2022-10-17 09:41 | disposition home or self-care (01) ==
LOC: HO.LAB 09:40
PROVIDERS: PCP General Practice; Visit Provider Urology
DX: E29.1 Testicular hypofunction (principal)
CPT/HCPCS: 36415; 84153; 84403; 85027

== ENCOUNTER → 2022-11-02 15:51 | Outpatient (BNVA) | payer MEDICAID, SELFPAY | PROVIDERS: PCP General Practice; Visit Provider Nurse Practitioner Family | DX: Z12.11 Encounter for screening for malignant neoplasm of colon (principal); K64.9 Unspecified hemorrhoids; K59.01 Slow transit constipation | CPT/HCPCS: 99212 ==

== ENCOUNTER 2023-03-22 11:32 | Emergency (ER) | payer MEDICAID, SELFPAY ==
[2023-03-22 11:39] VITALS: BP 156/104; PULSE 91; RESP 19; TEMP 36.6; O2SAT 99; BMI 40.0
--- NOTE | 2023-03-22 11:39 | ED_ITS ---
HPI - General Adult General Chief complaint: Back Pain/Injury Stated complaint: back pain/ L hand pain Time Seen by Provider: 03/22/23 11:55 Source: patient Mode of arrival: ambulatory Limitations: no limitations History of Present Illness HPI narrative: This is a 47-year-old male history of obesity presenting to the emergency department with lower back pain times a few hours, patient reports this is a work related injury he was picking up a heavy box filled with me, and started experiencing bilateral lower lumbar back pain as well as right-sided elbow pain. He says his elbow feels sore. Back worse with movement better at rest. No numbness, tingling, weakness, fevers, chills, saddle paresthesias, changes in bowel habits or urination, chest pain, shortness of breath. Related Data Home Medications Medication Instructions Recorded Confirmed naproxen 250 mg tablet 250 mg PO BID PRN 04/05/20 09/14/21 azelastine 137 mcg (0.1 %) nasal 1 spray intranasal BID 10/04/21 spray aerosol cholecalciferol (vitamin D3) 50 50 mcg PO DAILY 10/04/21 mcg (2,000 unit) tablet loratadine 10 mg tablet 10 mg PO DAILY 10/04/21 nabumetone 750 mg tablet 750 mg PO BID low back pain 10/04/21 polyvinyl alcohol 1.4 % eye drops 1 drp ophthalmic (eye) TID-QID 10/04/21 (Artificial Tears (polyvinyl alcohol)) cyclobenzaprine 10 mg tablet 10 mg PO TID PRN low back pain 11/03/21 Previous Rx's Medication Instructions Recorded hydrocortisone 2.5 % topical cream 1 appl HI BID-QID PRN hemorrhoids 09/06/21 with perineal applicator #30 grams (Proctosol HC) sennosides 8.6 mg tablet (Natural 8.6 mg PO BEDTIME constipation #90 11/03/21 Senna Laxative) tabs acetaminophen 500 mg tablet 500 mg PO Q6H PRN fever or pain 01/06/22 (Tylenol Extra Strength) #14 tabs cyclobenzaprine 5 mg tablet 5 mg PO Q8H PRN pain (scale score 01/06/22 7-10) 5 days #14 tabs ketorolac 10 mg tablet 10 mg PO TID PRN pain 5 days #15 01/06/22 tabs lidocaine 5 % topical patch 1 patch topical DAILY PRN pain #30 01/06/22 (Lidoderm) ea syringe with needle 1 mL 25 gauge #50 ea 10/17/22 x 5/8 bisacodyl 5 mg tablet,delayed 10 mg (2 x 5 mg) PO ONCE 1 day #2 11/02/22 release (Dulcolax (bisacodyl)) tabs docusate sodium 100 mg capsule 100 mg PO BEDTIME #90 caps 11/02/22 polyethylene glycol 3350 17 238 g PO ONCE #238 grams 11/02/22 gram/dose oral powder (Miralax) testosterone cypionate 200 mg/mL 100 mg (0.5 mL) subcut QWEEK 4 11/06/22 intramuscular oil weeks #4 mL (Depo-Testosterone) cyclobenzaprine 10 mg tablet 10 mg PO BEDTIME PRN muscle spasm 03/22/23 #7 tabs ketorolac 10 mg tablet 10 mg PO TID PRN pain 5 days #15 03/22/23 tabs lidocaine 5 % topical patch 1 patch topical DAILY PRN pain #15 03/22/23 ea Allergies Allergy/AdvReac Type Severity Reaction Status Date / Time No Known Allergies Allergy Verified 03/22/23 11:39 [No Known Allergies*] Review of Systems Review of Systems: Constitutional : No Weight loss, No Fever, No Chills, ENT/Mouth : No Hearing loss, No Ear Pain, No Nasal Congestion, No Sinus Pain, No Hoarseness, No sore throat, No Rhinorrhea, No Swallowing Difficulty Cardiovascular : No Chest Pain, No SOB Respiratory : No Cough, No Dyspnea Gastrointestinal : No Nausea, No Vomiting, No Diarrhea, No abdominal Pain, No Hematochezia, No Melena Genitourinary : No Dysuria, No Urinary Frequency, No Hematuria, No Urinary Incontinence, Musculoskeletal : positive back pain Skin : No Skin Lesions, No rash Neuro : No Weakness, No Numbness, No Paresthesias, no loss of bowel or bladder incontinence, no saddle anesthesia Yes all other systems are reviewed and are negative [facility] Past Medical History Attestation statement: The following information was validated with the patient. Source: old records reviewed and nursing notes reviewed Medical History Hemorrhoids with complication Morbid obesity Premature ejaculation Hypogonadism in male Low libido Surgical History History of vasectomy Social History Social History Alcohol intake: never Patient Tobacco Use Status: Never used Tobacco Advance Directives: No Advance Directives Information Provided: No Physical Exam ED Vital Signs: Vital Signs - 24 hr 03/22/23 11:39 Temperature 98 F Pulse Rate 91 Respiratory Rate 19 Blood Pressure 156/104 H Pulse Oximetry 99 Oxygen Delivery Method Room Air BMI result Body Mass Index 40.0 vss Appearance: Alert.? Oriented X3.? No acute distress.? Head: Normocephalic, atraumatic, no step-offs or deformities Eyes: Pupils equal, round and reactive to light.? ENT: Pharynx normal.? Neck: Normal inspection.? Neck supple.? CVS: Normal heart rate and rhythm.? Pulses normal.? Respiratory: No respiratory distress.? Breath sounds normal.? Abdomen: Soft and nontender.? Skin: Skin warm and dry.? Normal skin color.? Normal skin turgor.? Extremities: No lower extremity edema.? No calf ttp. 5/5 strength to bilateral upper and lower extremities 2+ radial pulses equal bilateral. No wrist drop. Normal sensation distally. Capillary refill intact bilateral upper extremity digits. Normal hand shift supervisor film processing. Normal range of motion to bilateral elbows pain- free. Back: No midline tenderness, no C-spine tenderness, full range of motion, no CVA tenderness bilaterally + b/l lumbar paraspinous tendernes Neuro: Oriented X 3.? No motor deficit.? No sensory deficit. CN 2-12 intact no saddle paresthesias. Patient ambulating with steady gait normal coordination. Course Course Course Narrative: This is an RME: Additional HPI, ROS, PE not included below will be deferred to primary provider. Patient is a 47-year-old male who presents emergency department for evaluation work related injury. Reports that just prior to arrival he was lifting a box while at work and he sustained injury to diffusely across his lower back and right elbow upon standing. Denies paresthesias. Denies history of back pain. No blunt trauma to the elbow. Plan: [facility] Medications Administered Discontinued Medications Generic Name Dose Route Start Last Admin Trade Name Freq PRN Reason Stop Dose Admin Ketorolac Tromethamine 30 mg 03/22/23 12:25 03/22/23 12:33 Ketorolac Tromethamine 30 Mg/Ml Vial IM 03/22/23 12:26 30 mg ONCE ONE Administration Lidocaine 2 patch 03/22/23 12:25 03/22/23 12:33 Lidocaine 4 % Patch Adh..Patch TRANSDERMA 03/22/23 12:26 2 patch ONCE ONE Administration Protocol Medical Decision Making Medical Decision Making MDM Narrative: 47-year-old male presents for evaluation of lower back pain that started at work after lifting, also could be complaints of right elbow pain. Physical exam with bilateral lower lumbar paraspinous tenderness. Full range of motion to back. No saddle paresthesias. Neuro nonfocal. Full range of motion to bilateral elbows. This is likely elbow sprain, strain/overuse injury. Back pain likely and a spasm or strain. Unlikely cauda equina, epidural abscess, cord compression. No signs of threat to [place], neurovascular compromise. Plan medicate discharge with outpatient follow-up. Educated patient on diagnosis and treatment plan, answered all question, patient verbalizes understanding. At this time patient will be discharged home, advised to return with new or worsening symptoms. Educated on worrisome signs and symptoms and when to return. At this time I feel comfortable discharge home. Differential Diagnosis Differential Diagnoses: The differential diagnosis associated with the presentation includes This is likely elbow sprain, strain/overuse injury. Back pain likely and a spasm or strain. Unlikely cauda equina, epidural abscess, cord compression. No signs of threat to [place], neurovascular compromise. Admission/Observation Consideration of admission/observation: Escalation of care including admission/observation considered No indication Tests considered The following testing was considered but not selected: Atraumatic no need for imaging. No red flag symptoms no need for CT or MRI Discharge Plan Discharge Clinical Impression: Lumbar back pain Patient Disposition: Home, Self-Care Instructions: Acute Low Back Pain (ED) Additional Instructions: Take your medications as prescribed. If you were prescribed antibiotics today, it is important that you take your medication to their entirety, do not skip any doses, do not finish them early. Follow-up with your primary care provider this week. Follow up with the work connection as this was a work related injury Return to the emergency department with new or worsening symptoms. Such as fevers, chills, chest pain, shortness of breath, nausea, vomiting, dizziness, headache, vision changes, lethargy In case of emergency call 911 Toradol has been sent to your pharmacy, you tolerated this well in the department. Please take this as prescribed do not take this with ibuprofen, or other NSAIDs, do not mix this with alcohol. Side effects of this medication including increased risk for bleeding and possible kidney injury. Prescriptions: New cyclobenzaprine 10 mg tablet 10 mg PO BEDTIME PRN (Reason: muscle spasm) Qty: 7 0RF ketorolac 10 mg tablet 10 mg PO TID PRN (Reason: pain) 5 Days Qty: 15 0RF lidocaine 5 % adhesive patch,medicated 1 patch topical DAILY PRN (Reason: pain) Qty: 15 0RF Rx Instructions: leave on most painful area for up to 12 hrs No Action (DME) syringe with needle 1 mL 25 gauge x 5/8 syringe See Rx Instructions .ROUTE .MEDSUPPLY Qty: 50 0RF Rx Instructions: As directed testosterone cypionate [Depo-Testosterone] 200 mg/mL oil 100 mg subcut QWEEK 28 Days Qty: 4 5RF Rx Instructions: dispose of vial after single use acetaminophen [Tylenol Extra Strength] 500 mg tablet 500 mg PO Q6H PRN (Reason: fever or pain) Qty: 14 0RF ketorolac 10 mg tablet 10 mg PO TID PRN (Reason: pain) 5 Days Qty: 15 0RF lidocaine [Lidoderm] 5 % adhesive patch,medicated 1 patch topical DAILY MDD remove after 12 hours PRN (Reason: pain) Qty: 30 0RF Rx Instructions: leave on most painful area for up to 12 hrs cyclobenzaprine 5 mg tablet 5 mg PO Q8H PRN (Reason: pain (scale score 7-10)) 5 Days Qty: 14 0RF naproxen 250 mg tablet 250 mg PO BID PRN cholecalciferol (vitamin D3) 50 mcg (2,000 unit) tablet 50 mcg PO DAILY azelastine 137 mcg (0.1 %) aerosol,spray 1 spray intranasal BID polyvinyl alcohol [Artificial Tears (polyvin alc)] 1.4 % drops 1 drp ophthalmic (eye) TID-QID nabumetone 750 mg tablet 750 mg PO BID loratadine 10 mg tablet 10 mg PO DAILY cyclobenzaprine 10 mg tablet 10 mg PO TID PRN (Reason: low back pain) sennosides [Natural Senna Laxative] 8.6 mg tablet 8.6 mg PO BEDTIME Qty: 90 4RF hydrocortisone [Proctosol HC] 2.5 % cream with perineal applicator 1 appl HI BID-QID PRN (Reason: hemorrhoids) Qty: 30 2RF bisacodyl [Dulcolax (bisacodyl)] 5 mg tablet,delayed release (DR/EC) 10 mg PO ONCE 1 Days Qty: 2 0RF Rx Instructions: take 2 tabs at noon the day before your colonoscopy polyethylene glycol 3350 [Miralax] 17 gram/dose powder 238 g PO ONCE Qty: 238 0RF Rx Instructions: As directed by gastroenterology department at [facility] docusate sodium 100 mg capsule 100 mg PO BEDTIME Qty: 90 4RF Referrals: Britney Barksdale MD [Primary Care Provider] - 3 days Stand Alone Forms: Work/School Release Interventions: ED Discharge Assessment Last Done: 03/22/23 12:42 Discharge Date/Time: 03/22/23 12:43
[2023-03-22] MEDS: Lidocaine 4 % Patch ADH..PATCH 2 PATCH TRANSDERMA (12:33)
[2023-03-22] MEDS: Ketorolac Tromethamine 30 MG/ML VIAL IM (12:33)
== END 2023-03-22 12:43 | disposition home or self-care (01) ==
PROVIDERS: Emergency Provider Emergency Medicine Emergency Medical Services; PCP General Practice
DX: M54.50 Low back pain, unspecified (principal); M79.642 Pain in left hand; Z79.899 Other long term (current) drug therapy
CPT/HCPCS: 99283; 99284; J1885

== ENCOUNTER 2023-05-03 14:52 | Outpatient (REF) | payer MEDICAID, SELFPAY ==
--- NOTE | ~2023-05-03 | XR_ITS ---
EXAMINATION: XR ELBOW, RIGHT CLINICAL INFORMATION: Elbow pain COMPARISON: None available. TECHNIQUE: AP, lateral, and oblique views of the right elbow. FINDINGS: The bones and soft tissues are normal. No fracture or joint effusion. Alignment is anatomic. Joint spaces are maintained. XR/XR elbow RT min 3V IMPRESSION: No bony abnormality.
--- NOTE | ~2023-05-03 | XR_ITS ---
EXAMINATION: XR KNEE, RIGHT CLINICAL INFORMATION: Pain. COMPARISON: None available. TECHNIQUE: AP, lateral and tunnel views of the right knee. FINDINGS: No fracture or joint effusion. Alignment is anatomic. Joint spaces are maintained. No abnormal soft tissue calcification. XR/XR knee RT 3V IMPRESSION: Normal right knee. EXAMINATION: XR KNEE, LEFT CLINICAL INFORMATION: Pain. COMPARISON: None available. TECHNIQUE: AP, lateral and tunnel views of the left knee. FINDINGS: No fracture or joint effusion. Alignment is anatomic. Joint spaces are maintained. No abnormal soft tissue calcification. IMPRESSION: Normal left knee.
--- NOTE | ~2023-05-03 | XR_ITS ---
EXAMINATION: XR LUMBOSACRAL SPINE CLINICAL INFORMATION: Lower back pain. COMPARISON: Radiographs dated 10/08/2017. TECHNIQUE: AP, lateral, and both oblique views of the lumbosacral spine. FINDINGS: Vertebral body heights and alignment are normal. The lumbar disc spaces are well-maintained. No acute fracture or spondylolisthesis is seen. There is multi-level marked lower thoracic and mild to moderate lumbar spondylosis. The posterior elements are intact. The paravertebral soft tissues are unremarkable. XR/XR lumbar spine 2-3V IMPRESSION: 1. No acute fracture or spondylolisthesis is seen. 2. The lower thoracic and lumbar disc spaces are well-maintained. 3. There is multi-level thoracolumbar spondylosis.
--- NOTE | ~2023-05-03 | XR_ITS ---
EXAMINATION: XR KNEE, RIGHT CLINICAL INFORMATION: Pain. COMPARISON: None available. TECHNIQUE: AP, lateral and tunnel views of the right knee. FINDINGS: No fracture or joint effusion. Alignment is anatomic. Joint spaces are maintained. No abnormal soft tissue calcification. XR/XR knee LT 3V IMPRESSION: Normal right knee. EXAMINATION: XR KNEE, LEFT CLINICAL INFORMATION: Pain. COMPARISON: None available. TECHNIQUE: AP, lateral and tunnel views of the left knee. FINDINGS: No fracture or joint effusion. Alignment is anatomic. Joint spaces are maintained. No abnormal soft tissue calcification. IMPRESSION: Normal left knee.
== END 2023-05-03 14:53 | disposition home or self-care (01) ==
LOC: HO.HHCX 14:52
PROVIDERS: Visit Provider General Practice
DX: M25.521 Pain in right elbow (principal); M25.561 Pain in right knee; M25.562 Pain in left knee; M54.50 Low back pain, unspecified; G89.29 Other chronic pain
CPT/HCPCS: 72100; 73080; 73562

== ENCOUNTER 2025-04-01 10:02 | Emergency (ER) | payer SELFPAY ==
--- NOTE | ~2025-04-01 | XR_ITS ---
EXAMINATION: XR SHOULDER, RIGHT CLINICAL INFORMATION: pain radiating down right arm COMPARISON: None available. TECHNIQUE: AP external rotation, Grashey, scapular Y, and axillary views of the right shoulder. FINDINGS: A.C. and glenohumeral joints are intact. There is mild degenerative change with small marginal osteophyte involving the distal clavicle. No fracture is identified. XR/XR shoulder RT min 2V IMPRESSION: Unremarkable right shoulder. Electronically signed by: William Zambrano MD 04/01/2025 10:36 AM EDT
[2025-04-01 10:07] VITALS: BP 173/111; PULSE 75; RESP 20; TEMP 36.4; O2SAT 97; BMI 40.8
--- NOTE | 2025-04-01 10:08 | ED_ITS ---
HPI - General Adult General Chief complaint: General Medical Stated complaint: Ear ache, headache Time Seen by Provider: 04/01/25 10:57 Source: patient and RN notes reviewed Mode of arrival: ambulatory Limitations: no limitations History of Present Illness ED Provider: Rose Mary De León PA-C HPI narrative: This is a 49-year-old male who presents emergency department with multiple complaints. Patient reports that he has had right ear pain, headache, right shoulder pain, and bilateral foot pain. Patient states that over the last 3 days he has had right ear pain and headache. He states that the headache is waxing and waning in severity, gradual onset, describing it as a pressure-like sensation in the back of his head. He denies any blurred vision, double vision, dizziness. He states that the ear pain is constant and radiates up into his head. He denies any discharge from the ear, no decreased hearing from the right ear. Denies any head trauma or head strike. 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 He denies a specific injury or instance where this caused him to have pain in his right shoulder. He also reports that over the last week he has had bilateral foot pain, states that this occurs in the morning, and throughout the day it improves. He denies any fevers, chills, chest pain, shortness of breath, abdominal pain, nausea, vomiting or diarrhea. No other complaints or concerns at this time. MD complaint: Multiple complaints Associated symptoms: denies other symptoms Related Data Home Medications ?Medication ?Instructions ?Recorded ?Confirmed naproxen 250 mg tablet 250 mg PO BID PRN 04/05/20 0 09/14/21 azelastine 137 mcg (0.1 %) nasal 1 spray intranasal BI D 10/04/21 spray cholecalciferol (vitamin D3) 50 50 mcg PO DAILY mcg (2,000 unit) tablet loratadine 10 mg tablet 10 mg PO DAILY 10/04/21 nabumetone 750 mg tablet 750 mg PO BID low back pain 10/04/21 polyvinyl alcohol 1.4 % eye drops 1 drp ophthalmic (ey e) TID-QID 10/04/21 (Artificial Tears (polyvinyl alcohol)) cyclobenzaprine 10 mg tablet 10 mg PO TID PRN low back pain 11/03/21 Previous Rx's ?Medication ?Instructions ?Recorded hydrocortisone 2.5 % topical cream [address] BID-QID P RN hemorrhoids 09/06/21 with perineal applicator #30 grams (Proctosol HC) sennosides 8.6 mg tablet (Natural 8.6 mg PO BEDTIME co nstipation #90 11/03/21 Senna Laxative) tabs acetaminophen 500 mg tablet 500 mg PO Q6H PRN fever or pain 01/06/22 (Tylenol Extra Strength) #14 tabs cyclobenzaprine 5 mg tablet 5 mg PO Q8H PRN pain (scal e score 01/06/22 7-10) 5 days #14 tabs ketorolac 10 mg tablet 10 mg PO TID PRN pain 5 days #15 01/06/22 tabs lidocaine 5 % topical patch 1 patch topical DAILY PRN pain #30 01/06/22 (Lidoderm) ea syringe with needle 1 mL 25 gauge #50 ea 10/17/22 x 5/8 bisacodyl 5 mg tablet,delayed 10 mg (2 x 5 mg) PO ONCE 1 day #2 11/02/22 release (Dulcolax (bisacodyl)) tabs docusate sodium 100 mg capsule 100 mg PO BEDTIME #90 c aps 11/02/22 polyethylene glycol 3350 17 238 g PO ONCE #238 grams 0 11/02/22 gram/dose oral powder (Miralax) testosterone cypionate 200 mg/mL 100 mg (0.5 mL) subcu t QWEEK 4 11/06/22 intramuscular oil weeks #4 mL (Depo-Testosterone) cyclobenzaprine 10 mg tablet 10 mg PO BEDTIME PRN musc le spasm 03/22/23 #7 tabs ketorolac 10 mg tablet 10 mg PO TID PRN pain 5 days #15 03/22/23 tabs lidocaine 5 % topical patch 1 patch topical DAILY PRN pain #15 03/22/23 ea acetaminophen 500 mg tablet 1,000 mg (2 x 500 mg) PO Q 6H PRN 04/01/25 (Tylenol Extra Strength) pain #30 tabs ibuprofen 600 mg tablet 600 mg PO Q6H PRN pain #30 t abs 04/01/25 ofloxacin 0.3 % ear drops 10 drp otic (ears) DAILY 7 d ays 04/01/25 #10 mL Allergies Allergy/AdvReac Type Severity Reaction Status Date / Time No Known Allergies (No Known Allergy Verified 04/01/25 10:11 Allergies*) Review of Systems 2 Review of Systems: Yes all other systems are reviewed and are negative Constitutional: Constitutional: Reports as per [facility] Past Medical History Medical History Hemorrhoids with complication Morbid obesity Premature ejaculation Hypogonadism in male Low libido Surgical History History of vasectomy Social History Social History Alcohol intake: never Patient Tobacco Use Status: Never used Tobacco Smoked in Last 30 Days: No Use of substances other than those prescribed or required for medical reasons: No Advance Directives: No Advance Directives Information Provided: No Do you have a plan to hurt others: No Plan Physical Exam ED Vital Signs: Vital Signs - 24 hr 04/01/25 10:07 04/01/25 11:25 04/01/25 13:09 Temperature 97.6 F 97.6 F Pulse Rate 75 78 76 Respiratory Rate 20 20 18 Blood Pressure 173/111 H 155/110 H 117/85 Pulse Oximetry 97 99 96 Oxygen Delivery Method Room Air Room Air Room Air BMI result Body Mass Index 40.8 Const General: cooperative, comfortable and no acute distress Orientation/consciousness: patient oriented x3 Limitations: no limitations HENMT Other: Right ear : Auditory canal is slightly erythematous, nonedematous, TM is intact, non erythematous or bulging. Left ear: Auditory canal unremarkable, there is a tympanostomy tube noted, no erythema noted. Head: Yes normal to inspection, Yes normocephalic and Yes atraumatic Ears: hearing grossly normal bilaterally General nose exam: Normal external nose present Face and sinus: Yes normal facial exam Mouth: Normal oral and palatal mucosa present, oropharynx normal and moist mucous membranes Throat: Yes posterior oropharynx normal Eyes General: appearance normal, both eyes and all related structures Eyelids: Yes eyelids normal Conjunctivae: conjunctivae normal Sclerae: sclerae normal Pupils: Equal, round and reactive pupils present EOM: EOMs intact bilaterally Neck Neck: Yes normal visual inspection, Yes full ROM and Yes no lymphadenopathy Lymphatic: no lymphadenopathy noted Chest Chest palpation & inspection: normal inspection of the chest Resp Effort & Inspection: normal respiratory effort and able to speak in complete sentences Auscultation: clear to auscultation bilaterally, no crackles, no rales, no rhonchi and no wheezes Cardio Rate: regular rate Rhythm: regular rhythm Heart sounds: S1 normal heart sound present and S2 normal heart sound present GI Inspection: Yes normal to inspection Skin General skin exam: no rashes or lesions noted Trauma: no lacerations or abrasions Wounds: no wounds Neuro General: patient oriented x3 and moves all extremities Cranial nerves: Yes Equal, round and reactive pupils present Extrem Other: Right shoulder with no obvious bony deformity or swelling, he does have point tenderness palpation along the AC joint, able to externally rotate to 180?, abduction to approximately 150?. Negative empty can test. Strong radial pulse. Sensation intact. Capillary refill less than 2 seconds. Bilateral feet with no overlying skin changes or warmth. He has tenderness palpation along the plantar fascia, no skin breakdown. Patient ambulatory with steady gait. General: Yes normal to inspection Right upper extremity: normal to inspection Left upper extremity: normal to inspection Right lower extremity: normal to inspection Left lower extremity: normal to inspection Course Course Course Narrative: This is a rapid medical exam performed by Candy Rodarte NP: Additional HPI, ROS, PE not included below will be deferred to primary provider. Patient is a 49y/o Ethiopian speaking male presenting with complaint of right ear pain x 3 days, right shoulder and upper back pain x 3 week. Also complaining of pain to feet, hands. Reports pain to soles of feet with ambulation, especially right foot. Numbness/tingling to hands. Denies fever. Plan: labs, viral serology Medications Administered Discontinued Medications Generic Name Dose Route Start Last Admin Trade Name Freq PRN Reason Stop Dose Admin Acetaminophen 975 mg 04/01/25 11:47 04/01/25 11:55 Acetaminophen 325 Mg Tablet PO 04/01/25 11:48 975 mg ONCE ONE Administration Ketorolac Tromethamine 30 mg 04/01/25 11:47 04/01/25 11:56 Ketorolac Tromethamine 30 Mg/Ml Vial IM 04/01/25 11:48 30 mg ONCE ONE Administration Medical Decision Making Medical Decision Making [facility] Narrative: This is a 49-year-old Ethiopian-speaking male who presents emergency department with complaints of right ear pain, right shoulder pain, headache, and bilateral foot pain. On arrival, blood pressure elevated at 173/111, all other vital signs within normal limits. He is speaking in full sentences under no acute distress. Patient is here with multiple complaints. Differential diagnoses include migraine headache, tension headache, OM, OE, plantar fasciitis, calcific tendinitis, arthritis, fracture-unlikely. Patient reporting any red flag symptoms in regards to headache, he has no blurry vision, double vision, no thunderclap presentation, symptoms likely tension headache and nature however patient also with right otitis externa, this could be referred pain. Patient also has point tenderness palpation along the right AC joint, he often times has to lift heavy objects throughout his workday, this is likely overuse injury. No profound injury or trauma therefore this location/fracture unlikely. X-ray was obtained revealing no fracture, there is mild degenerative changes with small marginal osteophytes involving the distal clavicle, otherwise no other findings. Labs were obtained prior to my evaluation, he has no leukocytosis, stable H&H, chemistry with no significant electrolyte derangement. COVID and flu negative. Patient also reporting bilateral foot pain which starts in the morning however progressively gets better throughout the day, this presentation consistent with plantar fasciitis. We will medicate patient with Toradol and Tylenol, and reassess. 1:23 PM 04/01/2025 (Rose Mary De León PA-C): Patient is feeling much better, given strict return precautions, he understands and agrees with plan. Given orthopedic referral as well. Patient stable for discharge. Differential Diagnosis Differential Diagnoses: The differential diagnosis associated with the presentation includes See above Lab Data [facility] Lab Attestation statement: I reviewed the patient's lab results. See [facility] 04/01/25 10:35 04/01/25 10:35 Labs: Lab Results 04/01/25 Range/Units 10:35 WBC 7.1 (4.8-10.8) X10*3/uL RBC 5.23 (4.60-5.80) X10*6/uL Hgb 14.7 (14.0-18.0) g/dl Hct 44.5 (42.0-52.0) % MCV 85.1 (80.0-98.0) fL MCH 28.1 (27.0-33.0) pg MCHC 33.0 (31.0-36.0) g/dl RDW 12.5 (11.0-16.0) % Plt Count 256 (160-400) X10*3/uL MPV 9.8 (9.4-12.4) fL Immature Gran % (Auto) 0.7 H (0.0-0.4) % Neut % (Auto) 70.0 (45-73) % Lymph % (Auto) 19.5 L (20-40) % Bryan % (Auto) 7.3 (2-11) % Eos % (Auto) 1.8 (0-4) % Baso % (Auto) 0.7 (0-2) % Lymph # (Auto) 1.4 (1.2-4.9) X10*3/uL Bryan # (Auto) 0.5 (0.1-1.2) X10*3/uL Eos # (Auto) 0.1 (0.0-0.4) X10*3/uL Baso # (Auto) 0.1 (0.0-0.2) X10*3/uL Abs Immat Gran (auto) 0.05 H (0.00-0.03) X10*3/uL Absolute Neuts (auto) 5.0 (2.0-8.3) x10*3/uL Absolute Nucleated RBC 0.000 (0.0-0.012) X10*3/uL Nucleated RBC % (auto) 0.0 (0.0-0.2) /100WBC Sodium 140 (135-145) mmol/L Potassium 4.0 (3.3-5.1) mmol/L Chloride 107 (96-108) mmol/L Carbon Dioxide 26 (22-29) mmol/L Anion Gap 11 L (12-20) BUN 10 (9-16) mg/dL Creatinine 0.93 (0.5-1.4) mg/dL Estim Creat Clear Calc 119.5 Estimated GFR > 60 Random Glucose 102 (60-115) mg/dL Calcium 9.6 (8.4-10.2) mg/dL Magnesium 2.0 (1.6-2.6) mg/dL Total Bilirubin 0.5 (0.0-1.0) mg/dL AST 25 (5-37) U/L ALT 36 (0-40) U/L Alkaline Phosphatase 134 H (39-117) U/L Total Protein 7.7 (6.5-8.0) g/dL Albumin 4.6 (3.5-5.0) g/dL COVID-19 (ELSA) Negative (Negative) COVID-19 Clin Com See Note Influenza Type A (NEIDA) Negative (Negative) Influenza Type B (NEIDA) Negative (Negative) Influenza A & B Note See Note Radiology Impression Discussion of test interpretation with radiology: I have reviewed the radiologist's reading. Radiologist Impression: EXAMINATION: XR SHOULDER, RIGHT CLINICAL INFORMATION: pain radiating down right arm COMPARISON: None available. TECHNIQUE: AP external rotation, Grashey, scapular Y, and axillary views of the right shoulder. FINDINGS: A.C. and glenohumeral joints are intact. There is mild degenerative change with small marginal osteophyte involving the distal clavicle. No fracture is identified. XR/XR shoulder RT min 2V IMPRESSION: Unremarkable right shoulder. Electronically signed by: William Zambrano MD 04/01/2025 10:36 AM EDT RP Dictated By: William Zambrano MD Discharge Plan Discharge Clinical Impression: Pain in right shoulder, Otitis externa, Bilateral plantar fasciitis, Headache Patient Disposition: Home, Self-Care Instructions: Swimmer's Ear (ED), Plantar Fasciitis (ED), Acute Headache (ED), Arm Pain (ED), Plantar Fasciitis Exercises (ED) Additional Instructions: You were seen in the emergency department for multiple complaints. Your right ear appears to be slightly infected, use antibiotic ear drops as prescribed. 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 Alternate between ibuprofen and or Tylenol as needed for pain and symptoms. You also have a condition called plantar fasciitis, this is inflammation of the bottom of your feet, which can cause pain and inflammation. Please rest and ice the areas. Use hip stretches that are attached to your discharge paperwork. If any new or worsening symptoms occur including but not limited to worsening pain, dizziness, blurred vision, double vision, severe chest pain or shortness of breath, please seek emergent care Prescriptions: New ibuprofen 600 mg tablet 600 mg PO Q6H PRN (Reason: pain) Qty: 30 0RF acetaminophen [Tylenol Extra Strength] 500 mg tablet 1,000 mg PO Q6H PRN (Reason: pain) Qty: 30 0RF ofloxacin 0.3 % drops 10 drp otic (ears) DAILY 7 Days Qty: 10 0RF No Action (DME) syringe with needle 1 mL 25 gauge x 5/8 syringe See Rx Instructions .ROUTE .MEDSUPPLY Qty: 50 0RF Rx Instructions: As directed testosterone cypionate [Depo-Testosterone] 200 mg/mL oil 100 mg subcut QWEEK 28 Days Qty: 4 5RF Rx Instructions: dispose of vial after single use acetaminophen [Tylenol Extra Strength] 500 mg tablet 500 mg PO Q6H PRN (Reason: fever or pain) Qty: 14 0RF ketorolac 10 mg tablet 10 mg PO TID PRN (Reason: pain) 5 Days Qty: 15 0RF lidocaine [Lidoderm] 5 % adhesive patch,medicated 1 patch topical DAILY MDD remove after 12 hours PRN (Reason: pain) Qty: 30 0RF Rx Instructions: leave on most painful area for up to 12 hrs cyclobenzaprine 5 mg tablet 5 mg PO Q8H PRN (Reason: pain (scale score 7-10)) 5 Days Qty: 14 0RF cyclobenzaprine 10 mg tablet 10 mg PO BEDTIME PRN (Reason: muscle spasm) Qty: 7 0RF ketorolac 10 mg tablet 10 mg PO TID PRN (Reason: pain) 5 Days Qty: 15 0RF lidocaine 5 % adhesive patch,medicated 1 patch topical DAILY PRN (Reason: pain) Qty: 15 0RF Rx Instructions: leave on most painful area for up to 12 hrs naproxen 250 mg tablet 250 mg PO BID PRN cholecalciferol (vitamin D3) 50 mcg (2,000 unit) tablet 50 mcg PO DAILY azelastine 137 mcg (0.1 %) aerosol,spray 1 spray intranasal BID polyvinyl alcohol [Artificial Tears (polyvin alc)] 1.4 % drops 1 drp ophthalmic (eye) TID-QID nabumetone 750 mg tablet 750 mg PO BID loratadine 10 mg tablet 10 mg PO DAILY cyclobenzaprine 10 mg tablet 10 mg PO TID PRN (Reason: low back pain) sennosides [Natural Senna Laxative] 8.6 mg tablet 8.6 mg PO BEDTIME Qty: 90 4RF hydrocortisone [Proctosol HC] 2.5 % cream with perineal applicator [address] BID-QID PRN (Reason: hemorrhoids) Qty: 30 2RF bisacodyl [Dulcolax (bisacodyl)] 5 mg tablet,delayed release (DR/EC) 10 mg PO ONCE 1 Days Qty: 2 0RF Rx Instructions: take 2 tabs at noon the day before your colonoscopy polyethylene glycol 3350 [Miralax] 17 gram/dose powder 238 g PO ONCE Qty: 238 0RF Rx Instructions: As directed by gastroenterology department at [facility] docusate sodium 100 mg capsule 100 mg PO BEDTIME Qty: 90 4RF Referrals: [facility] [Provider Group] Stand Alone Forms: Work/School Release Interventions: ED Discharge Assessment Last Done: 04/01/25 13:09 Discharge Date/Time: 04/01/25 13:09 Print Language: Ethiopian
[2025-04-01 10:48] LABS: MANUAL DIFF FLAG NO
[2025-04-01 10:49] LABS: Hematocrit 44.5 % (42.0-52.0); Hemoglobin 14.7 g/dl (14.0-18.0); Imm Gran Abs Auto 0.05 X10*3/uL (0.00-0.03); Imm Gran Pct Auto 0.7 % (0.0-0.4); Lymphocytes Absolute Auto 1.4 X10*3/uL (1.2-4.9); Mean Corpuscular HGB Conc 33.0 g/dl (31.0-36.0); Mean Corpuscular Hemoglobin 28.1 pg (27.0-33.0); Mean Corpuscular Volume 85.1 fL (80.0-98.0); NRBC Abs Auto 0.000 X10*3/uL (0.0-0.012); NRBC Pct Auto 0.0 /100WBC (0.0-0.2); Platelet Count 256 X10*3/uL (160-400); Red Blood Count 5.23 X10*6/uL (4.60-5.80); White Blood Count 7.1 X10*3/uL (4.8-10.8)
[2025-04-01 11:06] LABS: Alanine Aminotransferase 36 U/L (0-40); Albumin Level 4.6 g/dL (3.5-5.0); Alkaline Phosphatase 134 U/L (39-117); Anion Gap 11 (12-20); Aspartate Amino Transferase 25 U/L (5-37); Blood Urea Nitrogen 10 mg/dL (9-16); Calcium 9.6 mg/dL (8.4-10.2); Carbon Dioxide 26 mmol/L (22-29); Chloride 107 mmol/L (96-108); Creatinine Clr Calc Pharmacy 119.5; Estimated Glomerular Filt Rate > 60; Magnesium 2.0 mg/dL (1.6-2.6); Potassium 4.0 mmol/L (3.3-5.1); Sodium 140 mmol/L (135-145); Total Protein 7.7 g/dL (6.5-8.0)
[2025-04-01 11:11] LABS: COVID-19 Test Negative (Negative); IDNOW Serial# 08D9AD1C
[2025-04-01 11:12] LABS: IDNOW Serial# 58CA691E
[2025-04-01 11:13] LABS: Influenza B2 Negative (Negative)
[2025-04-01 11:25] VITALS: BP 155/110; PULSE 78; RESP 20; O2SAT 99
[2025-04-01 13:09] VITALS: BP 117/85; PULSE 76; RESP 18; TEMP 36.4; O2SAT 96
== END 2025-04-01 13:09 | disposition home or self-care (01) ==
PROVIDERS: Registered Nurse Emergency; Emergency Provider Emergency Medicine; PCP General Practice
DX: M25.511 Pain in right shoulder (principal); H66.91 Otitis media, unspecified, right ear; M72.2 Plantar fascial fibromatosis; R51.9 Headache, unspecified; Z03.818 Encounter for observation for suspected exposure to other biological agents ruled out
CPT/HCPCS: 73030; 80053; 83735; 85025; 87502; 87635; 96372; 99284; J1885

== ENCOUNTER → 2025-04-01 10:14 | Outpatient (BNV) | payer MEDICAID, SELFPAY | PROVIDERS: PCP General Practice; Visit Provider Radiology Diagnostic Radiology | DX: M79.601 Pain in right arm (principal) | CPT/HCPCS: 73030 ==